=== PATIENT | male | born 1995 | race Hispanic/Latino ===

== ENCOUNTER 2021-10-30 20:13 | Emergency (ER) | payer OTHER ==
[2021-10-30] VITALS (13 sets, daily range): BP systolic 122–139; BP diastolic 76–93
[~2021-10-30] VITALS: Ht 170.2 cm; Wt 72.7 kg
[~2021-10-30 20:13] MED LIST: CLEOCIN150 M1 PO; FLORASTOR250 M1 PO; IBUPROFEN200 MG PO; LORTAB 5/3255 MG PO
[2021-10-30] MEDS ORDERED: AMOX/K CLAV875 M1 PO (23:01)
[2021-10-30] MEDS ORDERED: LORTAB 1010 MG PO (23:01)
== END 2021-10-30 23:35 | disposition home or self-care (01) | DRG 605 ==
LOC: ED 20:13
PROC: 0HQ1XZZ Repair Face Skin, External Approach (ICD-10-PCS; principal; 2021-10-30)
PROC: 0HQEXZZ Repair Left Lower Arm Skin, External Approach (ICD-10-PCS; 2021-10-30)
DX: S01.85XA Open bite of other part of head, initial encounter (principal); S01.551A Open bite of lip, initial encounter; S51.852A Open bite of left forearm, initial encounter; W54.0XXA Bitten by dog, initial encounter; Y93.9 Activity, unspecified; Y92.009 Unspecified place in unspecified non-institutional (private) residence as the place of occurrence of the external cause

== ENCOUNTER 2021-10-31 13:20 | Emergency (ER) | payer OTHER ==
[~2021-10-31] VITALS: Ht 170.2 cm; Wt 72.7 kg
[~2021-10-31 13:20] MED LIST changes: +AMOX/K CLAV875 M1 PO; +LORTAB 1010 MG PO
[2021-10-31 13:24] VITALS: BP 132/83
[2021-10-31 13:30] VITALS: BP 131/72
[2021-10-31 13:45] VITALS: BP 131/87
== END 2021-10-31 13:51 | disposition home or self-care (01) | DRG 950 ==
LOC: ED 13:20
DX: S01.85XD Open bite of other part of head, subsequent encounter (principal); S61.452D Open bite of left hand, subsequent encounter; S61.552D Open bite of left wrist, subsequent encounter; W54.0XXD Bitten by dog, subsequent encounter